=== PATIENT | female | born 1965 | race Caucasian/White ===

== ENCOUNTER 2021-01-05 14:06 | Emergency (ER) | payer OTHER ==
[~2021-01-05] VITALS: Ht 165.1 cm; Wt 125.6 kg
[2021-01-05] MEDS ORDERED: CLONAZEPAM2 M1 PO (14:48)
[2021-01-05] MEDS ORDERED: EFFEXOR XR150 MG PO (14:48)
[2021-01-05] MEDS ORDERED: SEROQUEL400 MG PO (14:48)
[2021-01-05] MEDS ORDERED: PERCOCET 5-3251 EACH PO (19:18)
== END 2021-01-05 19:29 | disposition home or self-care (01) ==
LOC: ER 14:06
DX: L03.115 Cellulitis of right lower limb (principal); T81.49XA Infection following a procedure, other surgical site, initial encounter; B95.61 Methicillin susceptible Staphylococcus aureus infection as the cause of diseases classified elsewhere; B96.89 Other specified bacterial agents as the cause of diseases classified elsewhere; Y83.8 Other surgical procedures as the cause of abnormal reaction of the patient, or of later complication, without mention of misadventure at the time of the procedure